=== PATIENT | male | born 1965 | race African-American/Black ===

== ENCOUNTER 2022-08-23 07:27 | Emergency (ER) | payer OTHER ==
[~2022-08-23] VITALS: Ht 182.9 cm; Wt 100.0 kg
[~2022-08-23 07:27] MED LIST: TRAMADOL
[2022-08-23 07:41] VITALS: BP 128/85
[2022-08-23] MEDS ORDERED: CEPH500T PO (08:00)
[2022-08-23] MEDS ORDERED: SULF1TAB48 PO (08:00)
== END 2022-08-23 08:11 | disposition home or self-care (01) ==
LOC: ER 07:27
DX: L03.115 Cellulitis of right lower limb (principal); S30.842A External constriction of penis, initial encounter; W49.04XA Ring or other jewelry causing external constriction, initial encounter; Y93.89 Activity, other specified; Y92.89 Other specified places as the place of occurrence of the external cause
CPT/HCPCS: 99281; 99283